=== PATIENT | male | born 1950 | race Caucasian/White ===

== ENCOUNTER → 2016-06-30 | Outpatient (CLI) | payer OTHER ==
[~2016-06-30] MED LIST: OPTIRAY 320 IV PRN
--- NOTE | 2016-06-30 16:53 | DIAGNOSTIC IMAGING REPORT ---
CT OF THE ABDOMEN AND PELVIS WITH CONTRAST CLINICAL HISTORY: Abdominal pain. COMPARISON STUDY: None. TECHNIQUE: Following IV administration of 93 mL of Optiray-[id number], axial images of the abdomen and pelvis were obtained from the lung bases to the proximal femurs. Images were reviewed in the axial, sagittal, and coronal planes. IV contrast was administered without complication. Oral contrast was administered. CT DOSE: 939.30 mGycm FINDINGS: Lung bases are clear. The liver, spleen, adrenal glands, kidneys and pancreas are normal. There is no biliary or pancreatic ductal dilatation. There is no peripancreatic or pericholecystic infiltration. There is no hydronephrosis. The caliber and wall thickness of small and large bowel are normal. The appendix is normal. There is no free fluid. The prostate is mildly enlarged. There may be a previous right inguinal hernia repair. Skeletal structures are unremarkable. IMPRESSION: No acute process within the abdomen or pelvis. Electronically signed by: Ty Morales M.D. 06/30/2016 4:52 PM Dictated Date/Time: 06/30/2016 2:18 PM
== END | disposition home or self-care (01) ==
LOC: C.CTS 13:16
PROVIDERS: ATTEND Surgery
DX: R10.9 Unspecified abdominal pain (principal)